=== PATIENT | female | born 1990 | race Caucasian/White ===

== ENCOUNTER 2018-10-29 13:54 | Emergency (ER) | payer SELFPAY ==
[~2018-10-29] VITALS: Ht 175.3 cm; Wt 70.3 kg
--- NOTE | 2018-10-29 14:02 | NUR ---
ED Nurse Note: Sangeetha walked into ED c/o right fpinky metz, states that she was walking her dogs, fell and landed on her pinky causing it to be jammed. patient complains of 10/10 pain. patient is alert and oriented x4, ambulatory with a steady gait, VSS
[2018-10-29] MEDS ORDERED: NKM (14:04)
[2018-10-29 14:10] VITALS: BP 106/59
--- NOTE | 2018-10-29 14:14 | Emergency Room Report ---
History of Present Illness General Chief Complaint: Upper Extremity Injury Source: Patient Present Illness HPI 28-year-old female patient presents the ER complaining of left small finger pain for the past few hours. Reports she is right-hand dominant. Reports she injured her finger when she was walking her dog and the dog pulled the leash caused her to fall onto her left hand. Denies hitting her head or loss consciousness. Denies wrist pain. Denies pain in other fingers. States is not taking medication for relief of symptoms. Reports unable to extend his finger at distal joint of left small finger. Allergies: Coded Allergies: No Known Allergies (Unverified , 10/29/18) Patient History Past Medical History: see triage record Last Menstrual Period: a week ago Reviewed Nursing Documentation: PMH: Agreed; PSxH: Agreed Nursing Documentation-PMH Hx Asthma: Yes Review of Systems All Other Systems: negative except mentioned in HPI Physical Exam Vital Signs Date Time Temp Pulse Resp B/P (MAP) Pulse Ox O2 Delivery O2 Flow Rate FiO2 10/29/18 14:01 98.1 64 18 106/59 100 Room Air Sp02 EP Interpretation: reviewed, normal General Appearance: well appearing, no apparent distress, alert, GCS 15, non- toxic Head: normocephalic, atraumatic Eyes: bilateral eye normal inspection, bilateral eye PERRL ENT: hearing grossly normal, normal pharynx, no angioedema, normal voice, uvula midline, moist mucus membranes Neck: full range of motion Respiratory: lungs clear, normal breath sounds, no rhonchi, no respiratory distress, no accessory muscle use, no wheezing, speaking full sentences Cardiovascular #1: regular rate, rhythm, no edema Cardiovascular #2: 2+ radial (R), 2+ radial (L) Musculoskeletal: back normal, digits/nails normal, gait/station normal, decreased range of motion - Secondary to pain, swelling - mild, other - NVI, cap refill less than 2 second, mild ecchymosis, flexion and extension intact at PIP and DIP joint however decreased at DIP and PIP secondary to pain, tender - DIP joint of left small finger Neurologic: alert, oriented x3, responsive, motor strength/tone normal, sensory intact Skin: no rash Medical Decision Making PA Attestation Dr. Collado is my supervising Physician whom patient management has been discussed with. Diagnostic Impression: Primary Impression: Fracture of distal phalanx of finger ER Course Pt. presents to the ED c/o left hand small finger pain. Ddx considered but are not limited to fracture, sprain, strain, contusion, dislocation. No erythema, no warmth to touch, no fever, nontoxic appearing, low suspicion for septic joint. Soft compartments, no pulselessness, no pallor, no paresthesias, low suspicion for compartment syndrome at this time. Vital signs: are WNL, pt. is afebrile Ordered X-ray and pain medication. ER COURSE Provided with pain medication. On physical exam flexion and extension intact at the PIP and DIP however decreased from normal range of motion, concern for possible tendon or ligament rupture, needs follow-up with PCP and hand specialist. Provided with contact information for hand specialist. Call to schedule appointment. Reports understanding. An X-ray of the left hand shows distal phalanx fracture of fifth digit per the preliminary reading. Splint was applied to the small finger and finger was splinted in extension, was checked afterwards by me showing good alignment and support with distal neurovascular functioning intact. Patient instructed on RICE method: rest, ice, compression, elevation. Patient instructed on rest, ice and heat. Patient instructed to be NWB Contact information for orthopedic urgent care provided, follow-up with urgent care if unable to followup with primary care provider and get referral to computer network specialist. Followup with primary care provider. Discuss referral to ortho/pain management/ PT as needed. Discuss further imaging with MRI/CT as needed. Discharged to care of patient's friend will drive her home. DISCHARGE: At this time pt. is stable for d/c to home. Patient is resting comfortably, in no acute distress, nontoxic appearing, talking without difficulty. Will provide printed patient care instructions, and any necessary prescriptions. Patient instructed to follow with primary care provider in 3 - 5 days and to request further follow-up as needed. Care plan and follow up instructions have been discussed with the patient prior to discharge. Take medications as directed. Patient questions asked and answered. Patient reports understanding and agreement to treatment plan. ER precautions given, patient instructed to return to ER immediately for any new or worsening of symptoms. - Please note that this Emergency Department Report was dictated using [employer] and exhibit designer technology software, occasionally this can lead to erroneous entry secondary to interpretation by the dictation equipment. Other X-Ray Diagnostic Results Other X-Ray Diagnostic Results : X-Ray ordered: Left hand # of Views/Limited Vs Complete: 3 View Indication: Pain EP Interpretation: Yes PA Xray: Interpretation reviewed, by supervising MD, and agrees with findings. Interpretation: no dislocation, no soft tissue swelling, other - Distal phalanx fracture of the small finger Impression: Other - fracture PA Scribe Text Chadwick John PA-C Last Vital Signs Date Time Temp Pulse Resp B/P (MAP) Pulse Ox O2 Delivery O2 Flow Rate FiO2 10/29/18 14:01 98.1 64 18 106/59 100 Room Air Status: improved Disposition: HOME, SELF-CARE Condition: Stable Scripts Ibuprofen* (MOTRIN*) 600 Mg Tablet 600 MG ORAL Q8H PRN for For Pain, #30 TAB 0 Refills Prov: Keshav John 10/29/18 Hydrocodone Bit/Acetaminophen 5-325* (NORCO 5-325*) 1 Each Tablet 1 TAB ORAL Q6H PRN for For Pain, #8 TAB 0 Refills Prov: Keshav John 10/29/18 Patient Instructions: Finger Fracture, [id number], Tendon Injury Additional Instructions: Follow-up with hand specialist, call to schedule appointment. Patient instructed to follow up with primary care provider and discuss further referral to orthopedics/physical therapy/pain management as needed. If unable to followup with PCP, followup with orthopedic urgent care in 5-7 days , call to schedule appointment. Patient instructed on RICE method: rest, ice, compression, elevation. Patient instructed to NWB. Take medications as directed. Do not take [place] prior to drinking, driving, operating heavy machinery. Take Motrin following completion of [place] pain medication. Patient questions asked and answered. ER precautions given, patient instructed to return to ER immediately for any new or worsening of symptoms. [facility] [address] [facility] [address] [facility], [address] [email or web address] Keshav John Oct 29, 2018 14:14
[2018-10-29] MEDS ORDERED: HYDROcodone/Acetamin 5/325 tab ORAL ONE (15:30)
[2018-10-29] MEDS ORDERED: IBUPROFEN600 MG ORAL (15:47)
[2018-10-29] MEDS ORDERED: NORCO 5-325 TA1 EACH ORAL (15:47)
[2018-10-29 15:53] VITALS: BP 122/62
--- NOTE | 2018-10-29 15:55 | NUR ---
ER DISCHARGE NOTE: Patient is cleared to be discharged per ERMD, pt is aox4, on room air, with stable vital signs. pt was given dc and prescription instructions, pt was able to verbalize understanding, pt id band removed without complications. pt is able to ambulate with steady gait. pt took all belongings.
--- NOTE | 2018-10-29 16:08 | Diagnostic Imaging Report ---
Indication: Right hand pain Technique: 3 views right hand Comparison: none Findings: There is slight flexion deformity of the fifth proximal interphalangeal joint an extension deformity of the fifth metacarpophalangeal joint. There is a fracture of the fifth distal phalanx. This is minimally displaced and angulated. No dislocations. The joint spaces are preserved. Impression: Positive for fracture of the fifth distal phalanx Slight deformities of the fifth digit, if fixed could indicate ligamentous injury. Findings discussed by phone with ROBBY John in the emergency room at the time of interpretation
== END 2018-10-29 15:56 | disposition home or self-care (01) ==
LOC: EMR 14:13
DX: S62.637A Displaced fracture of distal phalanx of left little finger, initial encounter for closed fracture (principal); W19.XXXA Unspecified fall, initial encounter; Y93.K1 Activity, walking an animal; Y92.9 Unspecified place or not applicable
CPT/HCPCS: 29130; 99283